=== PATIENT | female | born 2000 | race African-American/Black ===

== ENCOUNTER 2023-08-14 11:54 | Emergency (ER) | payer BC ==
[2023-08-14] MEDS ORDERED: Ondansetron ODT 4 MG TAB ONE (13:16)
[2023-08-14] MEDS ORDERED: Dicyclomine 20 MG/2 ML VIAL ONE (13:16)
== END 2023-08-14 14:45 | disposition home or self-care (01) ==
LOC: CSHERS 11:54
DX: K52.9 Noninfective gastroenteritis and colitis, unspecified (principal)
CPT/HCPCS: 96372; 99283; Q0162